=== PATIENT | male | born 1990 | race Caucasian/White ===

== ENCOUNTER 2024-08-20 21:18 | Emergency (ER) | payer OTHER ==
[~2024-08-20] VITALS: Ht 182.9 cm; Wt 70.3 kg
[~2024-08-20 21:18] MED LIST: ARIP10 PO; ESCI5 PO; OMEP10ER PO; ONDA8ODT MM
[2024-08-21] MEDS ORDERED: ACET500 PO (01:30)
[2024-08-21] MEDS ORDERED: IBUP600 PO (01:30)
[2024-08-21] MEDS ORDERED: Acetaminophen 500 MG Tab PO ONE (01:30)
[2024-08-21] MEDS ORDERED: Ibuprofen 600 MG Tab PO ONE (01:30)
== END 2024-08-21 01:52 | disposition home or self-care (01) ==
LOC: ER 21:18
DX: S63.501A Unspecified sprain of right wrist, initial encounter (principal); J45.909 Unspecified asthma, uncomplicated; X50.0XXA Overexertion from strenuous movement or load, initial encounter; Z79.899 Other long term (current) drug therapy
CPT/HCPCS: 99283; A9270